=== PATIENT | male | born 1965 ===

== ENCOUNTER 2018-02-26 10:16 | Emergency (ER) | payer MEDICAID ==
[2018-02-26 10:40] VITALS: BP 124/77; PULSE 98; RESP 20; TEMP 98.9; O2SAT 97
--- NOTE | 2018-02-26 11:34 | C.PDOC ---
History Of Present Illness Patient complains of bilateral arm pains for 2 weeks and now has pain in both his legs. He reports feeling aches and tingling sensation occasionally. 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 He was seen by Dr. Vines who prescribed Naproxen 375mg and Flexeril 10mg without relief. Patient states he thinks he has vitamin deficiency and would like to be evaluated. Denies any injury, weakness, temperature changes. Time Seen by Provider: 02/26/18 11:11 Chief Complaint (Nursing): Upper Extremity Problem/Injury History Per: Patient History/Exam Limitations: no limitations Onset/Duration Of Symptoms: Days Current Symptoms Are (Timing): Still Present Past Medical History Reviewed: Historical Data, Nursing Documentation, Vital Signs Vital Signs: Last Vital Signs Temp 98.9 F 02/26/18 10:32 Pulse 98 H 02/26/18 10:32 Resp 20 02/26/18 10:32 BP 124/77 02/26/18 10:32 Pulse Ox 97 02/26/18 10:32 - Medical History PMH: HTN, Hypercholesterolemia Surgical History: No Surg Hx - [facility] Procedures ANT NASAL PACK FOR EPIST (04/13/14) CAUTERY TO STOP EPISTAX (08/07/12) Family History: States: Unknown Family Hx - Social History Hx Tobacco Use: No Hx Alcohol Use: No Hx Substance Use: No - Immunization History Hx Tetanus Toxoid Vaccination: No Hx Influenza Vaccination: No Hx Pneumococcal Vaccination: No Review Of Systems Except As Marked, All Systems Reviewed And Found Negative. Constitutional: Negative for: Fever Musculoskeletal: Positive for: Arm Pain (bilateral), Leg Pain (bilateral) Skin: Negative for: Other (temperature changes) Neurological: Positive for: Other (tingling sensation). Negative for: Weakness, Incoordination Physical Exam - Physical Exam Appears: Well, Non-toxic, No Acute Distress Skin: Warm, Dry, No Rash Head: Atraumatic, Normacephalic Eye(s): bilateral: Normal Inspection Oral Mucosa: Moist Neck: Normal ROM Chest: Symmetrical Cardiovascular: Rhythm Regular, No Murmur Respiratory: Normal Breath Sounds, No Rales, No Rhonchi, No Wheezing Back: Normal Inspection, No Paraspinal Tenderness Extremity: Bilateral: Atraumatic, Normal Color And Temperature, Normal ROM, Other (no joint swelling, erythema, crepitus) Neurological/Psych: Oriented x3, Normal Speech Gait: Steady ED Course And Treatment O2 Sat by Pulse Oximetry: 97 (RA) Pulse Ox Interpretation: Normal Medical Decision Making Medical Decision Making: Impression: myalgia, arthralgia Dispo: Patient instructed to follow up with PMD and ask for bloodwork in regards to condition. This is not an emergency and this type of bloodwork is not done through the ED. Patient understands. Disposition Counseled Patient/Family Regarding: Diagnosis, Need For Followup - Disposition Referrals: Angela Fernandez MD [Medical Doctor] - Clyde Gaming Jr., MD [Staff Provider] - Disposition: HOME/ ROUTINE Disposition Time: 11:34 Condition: GOOD Additional Instructions: Fela la medicina segn lo prescrito Shwetha un seguimiento con [facility] para jennifer evaluacin adicional y un examen de leny sntomas Puede seguir con un especialista vascular. Prescriptions: Cyanocobalamin (Vitamin B-12) [Vitamin B-12] 250 mcg PO DAILY #30 tablet Gabapentin 300 mg PO DAILY #30 capsule Ibuprofen [Motrin] 600 mg PO Q8 #30 tab Instructions: Joint Pain Print Language: URUGUAYAN - POA Present On Arrival: None - Clinical Impression Clinical Impression: Arthralgia - PA / DECAL CUTTER / Resident Statement MD/DO has reviewed & agrees with the documentation as recorded. - Scribe Statement The provider has reviewed the documentation as recorded by the Scribe Julia Hernandez All medical record entries made by the Scribe were at my direction and personally dictated by me. I have reviewed the chart and agree that the record accurately reflects my personal performance of the history, physical exam, medic al decision making, and the department course for this patient. I have also personally directed, reviewed, and agree with the discharge instructions and disposition.
== END 2018-02-26 11:42 | disposition home or self-care (01) ==
LOC: C.ER 10:16
DX: M25.50 Pain in unspecified joint (principal); I10 Essential (primary) hypertension; E78.00 Pure hypercholesterolemia, unspecified

== ENCOUNTER 2018-07-03 12:29 | Emergency (ER) | payer MEDICAID ==
[2018-07-03 12:42] VITALS: BP 129/81; PULSE 98; TEMP 98.6; O2SAT 99
--- NOTE | 2018-07-03 13:03 | C.PDOC ---
History Of Present Illness 52 y/o M p/w bilateral arm pains and both his legs x months. He reports feeling aches and tingling sensation occasionally. Denies injury, fever, blackening of skin. Patient was in this ED for same when symptoms were 2 weeks in duration and was instructed to f/u with primary care for further evaluation. He followed up, had negative labs and has follow up arranged with neurology in 9 days. Time Seen by Provider: 07/03/18 12:45 Chief Complaint (Nursing): Pain, Chronic Past Medical History Vital Signs: Last Vital Signs Temp 98.6 F 07/03/18 12:39 Pulse 98 H 07/03/18 12:39 Resp 20 07/03/18 12:39 BP 129/81 07/03/18 12:39 Pulse Ox 99 07/03/18 12:39 - Medical History PMH: HTN, Hypercholesterolemia - [facility] Procedures ANT NASAL PACK FOR EPIST (04/13/14) CAUTERY TO STOP EPISTAX (08/07/12) Family History: States: Unknown Family Hx - Social History Hx Tobacco Use: No Hx Alcohol Use: Yes Hx Substance Use: No - Immunization History Hx Tetanus Toxoid Vaccination: No Hx Influenza Vaccination: No Hx Pneumococcal Vaccination: No Review Of Systems Except As Marked, All Systems Reviewed And Found Negative. Constitutional: Negative for: Fever Respiratory: Negative for: Shortness of Breath Physical Exam - Physical Exam Additional Physical Exam Comments: gen nad head nc/at eyes no scleral icterus ent mmm neck no midline tenderness chest no tenderness cv reg rate lungs cta b/l abd soft nt back no midline tenderness skin no rash, no cyanosis, no gangrene, no duskiness extremities from x 4 neuro alert, motor and sensation intact ED Course And Treatment O2 Sat by Pulse Oximetry: 99 Medical Decision Making Medical Decision Making: keep appointment with neurology, continue gabapentin. patient requests pain medication, will start meloxicam. Disposition - Disposition Disposition: HOME/ ROUTINE Disposition Time: 13:16 Condition: GOOD Prescriptions: Meloxicam [Mobic] 15 mg PO DAILY #10 tablet Instructions: Chronic Pain (DC) Forms: [employer] (Ch[place]) - Clinical Impression Clinical Impression: Chronic pain
[2018-07-03 13:26] VITALS: RESP 18
== END 2018-07-03 13:26 | disposition home or self-care (01) ==
LOC: C.ER 12:29
DX: G89.29 Other chronic pain (principal)